=== PATIENT | female | born 2000 | race Hispanic/Latino ===

== ENCOUNTER 2023-02-24 16:00 | Emergency (ER) | payer MEDICAID, OTHER, SELFPAY ==
[2023-02-24 18:56] LABS: SARS-CoV-2 NAA Rapid Test Not Detected (NotDetected)
== END 2023-02-24 19:20 | disposition home or self-care (01) ==
LOC: ERS 16:00
DX: J20.9 Acute bronchitis, unspecified (principal); Z20.822 Contact with and (suspected) exposure to COVID-19
CPT/HCPCS: 71045; 93005